=== PATIENT | female | born 1960 | race Caucasian/White ===

== ENCOUNTER 2023-12-23 21:38 | Emergency (ER) | payer BC, SELFPAY ==
[2023-12-23 21:51] VITALS: BP 124/86
[2023-12-23 22:15] VITALS: BMI 44.4
--- NOTE | 2023-12-23 22:18 | EDRN ---
Pt says on the she had a colposcopy at [facility] and on the she had a stimulator for her bladder replaced at [facility] in [place]. Pt woke on and there was blood in the bed which she attributed to the but
thinks it might be from the . The and (until ton) there was no blood. Pt was at a wedding, went to the bathroom tonight and noted blood in the toilet. Pt left wedding around 2029 and says the bleeding was very heavy - no clots.
Pt unable to describe color of blood. Pt has not been wearing any pads for bleeding, says she had blood in her underwear. No abd pain/cramping, n/v, fever/chills/cough, cp, sob, dizziness, weakness.
[2023-12-23 22:26] VITALS: BP 120/77
[2023-12-23 23:00] VITALS: BP 108/61
[2023-12-23] MEDS: NSS 1000 IV (23:11)
[2023-12-23 23:18] LABS: % Basophils 0.8 % (0-2); % Eosinophils 1.6 % (0-6); % Immature Granulocytes 0.3 % (0-0.5); % Lymphocytes 25.4 % (20.5-51.1); % Neutrophils 62.9 % (42.2-75.2); Absolute Basophils 0.1 10^3/uL (0-0.2); Absolute Eosinophils 0.1 10^3/uL (0-0.7); Absolute Lymphocytes 2.2 10^3/uL (1.2-3.4); Absolute Monocytes 0.8 10^3/uL (0.1-0.6); Absolute Neutrophils 5.4 10^3/uL (1.4-6.5); Hematocrit 38.8 % (37.0-47.0); Hemoglobin 13.3 g/dL (12.0-16.0); Mean Corp Hgb Conc. 34.3 g/dL (33.0-37.0); Mean Corpuscular Hgb 28.7 pg (27.0-31.0); Mean Corpuscular Volume 83.8 fL (81.0-99.0); Mean Platelet Volume 9.1 fL (7.4-10.4); Nucleated Red Blood Cells % 0 %; Platelet Count 356 10^3/uL (130-400); Red Blood Cell Count 4.63 10^6/uL (4.20-5.40); Red Cell Dist. Width 14.6 % (11.5-14.5); White Blood Cell Count 8.6 10^3/uL (4.8-10.8)
[2023-12-23 23:30] LABS: INR 1.02; PT 13.2 Sec (11.4-14.6)
[2023-12-23 23:47] LABS: ALT (SGPT) 28 U/L (0-35); AST (SGOT) 24 U/L (14-36); Albumin 4.3 g/dl (3.5-5.0); Alkaline Phosphatase 108 U/L (38-126); Blood Urea Nitrogen 11 mg/dl (7-17); Calcium 9.4 mg/dl (8.4-10.2); Carbon Dioxide 19 mmol/L (22-30); Chloride 106 mmol/L (98-107); Estimated Creatinine Clearance 118 ml/min; Glucose 113 mg/dl (70-99); Potassium 4.4 mmol/L (3.5-5.1); Sodium 140 mmol/L (135-145); Total Bilirubin 0.4 mg/dl (0.2-1.3); Total Protein 6.9 g/dl (6.3-8.2); eGFR > 60.00
[2023-12-24 00:16] VITALS: BP 101/68
--- NOTE | 2023-12-24 00:22 | ED.GENMED ---
History of Present Illness
General
Chief Complaint: Vaginal Bleeding
Source: patient
Exam Limitations: none
Time Seen by Provider: 12/23/23 22:19
History of Present Illness
History of Present Illness:
This is a 63 year old female that comes in with c/o vaginal bleeding. States that she has a Colposcopy on the 14 of December. States that they were at a wedding tonight and she started bleeding. States that she has mild bleeding for the pst 2
days. States that this was bright red bleeding. States that this was done in [place]. Denies any fever, chills, chest pain, SOB, abd pain, nausea, vomiting, diarrhea, headache, dizziness, urinary burning.
Past History
Past History
ED Past Medical History: GERD, NIDDM, Psychiatric (Depression) and Other (Herpes, )
ED Past Surgical History: Gynecological (Colposcopy), Orthopedic (Left hip replacement) and Urological (Bladder stimulator)
Social History
Tobacco: Former smoker
Alcohol: Occasional
Personal:
Living: with family
Review of Systems
Review of Systems
All Other Systems: ROS reviewed and negative except as documented in HPI and ROS
Constitutional: Reports no symptoms; Denies fever or chills
EENT: Reports no symptoms
Respiratory: Reports no symptoms; Denies cough or trouble breathing
Cardiac: Reports no symptoms; Denies chest pain
ABD/GI: Denies abdominal pain, nausea, vomiting or diarrhea
: Reports bleeding (Vaginal bleeding)
Musculoskeletal: Reports no symptoms
Skin: Reports no symptoms
Neurological: Reports no symptoms; Denies dizzy or headache
Psychiatric: Reports no symptoms
Phy Exam
General Physical Exam
General Presentation: well appearing and no apparent distress
General age: appears stated age
General Skin: warm and dry
General Habitus: normal
General Mental: alert
General Hydration: appears well hydrated
ENT Exam
ENT Exam: TM's normal, pharynx normal and neck supple
Eye Exam
Eye Exam: EOMI
Cardiovascular Exam
Cardiovascular Exam: regular rate/rhythm, no edema, no murmur and normal peripheral pulses
Pulmonary Exam
Pulmonary Exam: lungs clear, no respiratory distress, no rales, chest non tender, no crackles, no rhonchi and no cough
Gastrointestinal Exam
Gastrointestinal Exam: normal bowel sounds, non tender, soft, no organomegaly, no pulsatile mass and non distended
Genitourinary Exam Female
Vaginal Exam: blood (not in vaginal area. NO clots seen. )
Musculoskeletal Exam
Musculoskeletal Exam: full ROM and no edema
Skin Exam
Skin Exam: normal color, warm/dry, no rash and no petechia
Psychiatric Exam
Psychiatric Exam: normal mood/affect
Course
Orders/Labs/Results
Orders:
Orders
12/23/23 22:57
US Pelvis Only (non-obstetric) Urgent
Comment: Colposcopy on 13. Bleeding started light 2 days ag
Reason For Exam: vaginal bleeding
12/23/23 23:03
0.9% Sodium Chloride 1000 ml [Nss] 1,000 ml IV BOLUS
12/23/23 23:04
Complete Blood Count/With Diff Urgent
Comprehensive Metabolic Panel Urgent
Prothrombin Time Urgent
Abnormal Lab Results
12/23/23
23:04
RDW 14.6 H %
(11.5-14.5)
Absolute Monos (auto) 0.8 H 10^3/uL
(0.1-0.6)
Carbon Dioxide 19 L mmol/L
(22-30)
Glucose 113 H mg/dl
(70-99)
12/23/23 23:04
12/23/23 23:04
Glucose nonfasting. Carbon dioxide slightly low, Otherwise lab normal. PT 13.2 with INR 1.02
Vital Signs
Initial and Last Documented VS:
Initial Vital Signs
Temp Pulse Resp BP Pulse Ox
98.6 F 98 22 124/86 94
12/23/23 21:51 12/23/23 21:51 12/23/23 21:51 12/23/23 21:51 12/23/23 21:51
Last Documented Vital Signs
Temp Pulse Resp BP Pulse Ox
98.6 F 84 13 101/68 94
12/23/23 21:51 12/24/23 00:16 12/24/23 00:16 12/24/23 00:16 12/23/23 21:51
MDM/Problems Addressed
Differential Diagnosis Includes:
bleeding from Colposcopy,
MDM/Problems Addressed:
This is a 63 year old female that comes in with c/o vaginal bleeding. States that she had a Colposcopy on the . States that the past 2 days she had a little bleeding and then tonight she had a lot of bright red bleeding.
Will check labs. US
Back into see patient. Explained that her blood work is normal along with the US. There is no fluid collection noted. Patient to rest over the weekend and put her feet up. Call the PLUG MAKER that did the Colposcopy for follow up. RETURN WITH INCREASED
BLEEDING OR ANY OTHER CONCERNS.
Chronic conditions affecting care:
Recent Colposcopy
Acute Exacerbation and/or Progression of Chronic Illness:
Colposcopy
*Radiology
Radiology exam reviewed: radiology read reviewed (US night hawk-Limited transabdominal imaging due to patient body habitus and bowel gas. Uterus is grosly unremarkable. Endometrium is not well visualized but appears to measure roughly 7mm in
thickness. Ovaries are not visualized. NO free fluid is seen. )
*Pulse Oximetry
Patient hypoxic: no
*EKG
Interpreted by ED Provider?: NA
Rate: EKG- N/A
*Core Layer Machine Operator Interpretation
Rate: Core Layer Machine Operator- N/A
*Critical Care Note
Total Time (30-74mins, 75-104mins- exclusive of procedures): Not Applicable
ED Attending Note
-
Portions of this chart may have been created with voice recognition software.� Occasional wrong word or��sound alike� substitutions may have occurred due to the inherent limitations of voice recognition software.
Discharge Plan
Departure
Patient Disposition: Home (Routine Discharge)
Date of Disposition: 12/24/23
Time of Disposition: 00:34
Patient with high blood pressure during this ER visit?: No
Condition: Good
Covid-19: Not Applicable
Discharge Problem:
Abnormal vaginal bleeding
Instructions: Colposcopy
Prescriptions:
No Action
spironolactone 100 mg Tablet
100 mg PO DAILY
valacyclovir 500 mg Tablet
500 mg PO DAILY
omeprazole 40 mg Capsule,Delayed Release(Dr/Ec)
40 mg PO DAILY
metformin 1,000 mg Tablet
1,000 mg PO DAILY
bupropion HCl 150 mg Tablet Extended Release 24 Hr
150 mg PO DAILY
Referrals:
UNKNOWN - PT NOT,INTERVIEWE [Family Provider] -
Activity Restrictions/Additional Instructions:
As discussed, your blood work shows that your blood sugar is slightly elevated. Otherwise your blood work is normal. Your Ultrasound is negative for any acute process and there is no fluid collection noted. Please rest this weekend and keep your
feet up. Call the PLUG MAKER that did the Colposcopy for further evaluation. IF YOU HAVE BLEEDING THAT INCREASES, CLOTS OR YOU HAVE ANY OTHER CONCERNS PLEASE RETURN TO THE EMERGENCY ROOM.
Interventions
Interventions:
*Risk Screen - Suicide Last Done: 12/23/23 21:51
*General Assessment Last Done: 12/23/23 22:15
*Neglect/Abuse Screening Last Done: 12/23/23 21:51
*ED COVID-19 Vaccine History Last Done: 12/23/23 22:15
ED-Female Genitourinary Assessment Last Done: 12/23/23 22:32
Discharge Date and Time
Print Language: BURKINAN
[2023-12-24 01:00] VITALS: BP 106/64
== END 2023-12-24 01:21 | disposition home or self-care (01) ==
LOC: EMR 21:38
PROVIDERS: Clinical Nurse Specialist Family Health; EMERGENCY PHYSICIAN Student in an Organized Health Care Education/Training Program
DX: N93.9 Abnormal uterine and vaginal bleeding, unspecified (principal); E11.9 Type 2 diabetes mellitus without complications; K21.9 Gastro-esophageal reflux disease without esophagitis; Z87.891 Personal history of nicotine dependence
CPT/HCPCS: 99284; 96360; 76856; 80053; 85025; 85610